=== PATIENT | female | born 1965 | race Caucasian/White ===

== ENCOUNTER → 2016-07-22 | Outpatient (REF) | payer BC | LOC: M LAB REF 12:40 | PROVIDERS: ATTEND Internal Medicine Medical Oncology | DX: C92.40 Acute promyelocytic leukemia, not having achieved remission (principal) ==

== ENCOUNTER → 2016-10-25 | Outpatient (REF) | payer BC | LOC: M LAB REF 12:55 | PROVIDERS: ATTEND Internal Medicine | DX: N76.0 Acute vaginitis (principal) ==

== ENCOUNTER → 2016-11-03 | Outpatient (REF) | payer BC | LOC: M LAB REF 11:22 | PROVIDERS: ATTEND Internal Medicine | DX: R31.9 Hematuria, unspecified (principal) ==

== ENCOUNTER → 2016-11-11 | Outpatient (REF) | payer BC | LOC: M LAB REF 16:29 | PROVIDERS: ATTEND Internal Medicine | DX: R31.9 Hematuria, unspecified (principal) ==

== ENCOUNTER → 2016-12-26 | Outpatient (CLI) | payer BC ==
[~2016-12-26] MED LIST: AMLO5TAB2 PO; LEVO175T2 PO; MULT1CHW39 PO
--- NOTE | 2016-12-26 11:36 | REP ---
Chest two views HISTORY: Port catheter check Comparison: None The lungs are clear. The heart is normal in size. The pulmonary vasculature is normal in appearance. The bony structure is intact. An [id number] catheter is present in the superior vena cava. IMPRESSION: No acute disease. Signed by Roderick Ryan MD 12/26/2016 11:28 A
== END ==
LOC: M SMT 11:06
PROVIDERS: ATTEND Thoracic Surgery (Cardiothoracic Vascular Surgery)
DX: T80.89XA Other complications following infusion, transfusion and therapeutic injection, initial encounter (principal); X58.XXXA Exposure to other specified factors, initial encounter; Y93.9 Activity, unspecified; Y92.9 Unspecified place or not applicable; Y99.8 Other external cause status

== ENCOUNTER → 2016-12-30 | Outpatient (CLI) | payer BC ==
[2016-12-30 17:42] LABS: INR 0.92
== END ==
LOC: M SMT 13:59
PROVIDERS: ATTEND Thoracic Surgery (Cardiothoracic Vascular Surgery)
DX: Z01.818 Encounter for other preprocedural examination (principal)

== ENCOUNTER 2017-01-02 10:31 | Day surgery (SDC) | payer BC ==
[~2017-01-02] VITALS: Ht 162.6 cm; Wt 113.4 kg
[2017-01-02] MEDS ORDERED: LR 1,000 ML IV ONE (10:45)
[2017-01-02] MEDS ORDERED: MUPIROCIN 2% OINT 22 GM TUBE TOP ONE (11:45)
[2017-01-02] MEDS ORDERED: fentaNYL 100 MCG/2 ML INJECTION (J3010) As Ordered ONE (14:56)
[2017-01-02] MEDS ORDERED: LIDOCAINE 2% INJ 100 MG/5 ML SDV (FOR ANES.) As Ordered ONE ×2 (14:56→15:04)
[2017-01-02] MEDS ORDERED: PROPOFOL 200 MG/20 ML VIAL As Ordered ONE ×4 (14:56→15:41)
[2017-01-02] MEDS ORDERED: MIDAZOLAM INJ 2 MG/2 ML VIAL (J2250) As Ordered ONE (14:57)
[2017-01-02] MEDS ORDERED: dexameTHASONE 4 MG/ML 1ML VIAL (J1100) As Ordered ONE (15:04)
[2017-01-02] MEDS ORDERED: ONDANSETRON 4MG/2ML VIAL (J2405) As Ordered ONE (15:04)
[2017-01-02] MEDS ORDERED: BUPIVACAINE LIPOSOME/PF 1.3% 20 ML VIAL (13.3MG/ML)(EXPAREL) As Ordered ONE (15:13)
[2017-01-02 16:25] VITALS: BP 122/64
[2017-01-02] MEDS ORDERED: PERCOCET 5MG/325MG TAB PO PRN (16:45)
[2017-01-02] MEDS ORDERED: METOCLOPRAMIDE INJ 10MG/2ML VIAL (J2765) IV PRN (16:45)
[2017-01-02] MEDS ORDERED: ONDANSETRON 4MG/2ML VIAL (J2405) IV PRN (16:45)
[2017-01-02] MEDS ORDERED: LR 1,000 ML IV SCH (16:45)
--- NOTE | 2017-01-02 18:22 | RO ---
DATE OF PROCEDURE: 01/02/2017 PREPROCEDURE DIAGNOSIS: Retained Infusaport, status-post chemotherapy for leukemia. POSTPROCEDURE DIAGNOSIS: Retained Infusaport, status-post chemotherapy for leukemia. PROCEDURE: Removal of Infusaport with fluoroscopic control. SURGEON: Dr. Crow Mena COAT MAKER: ANESTHESIA: DESCRIPTION OF PROCEDURE: After satisfactory monitored anesthetic care (MAC) anesthesia, patient prepped and draped in the usual sterile fashion. The port site was infiltrated with Exparel. Incision was made and the port was found and the glistening capsule. The glistening capsule was dissected free. The stem of the port was identified as was the capsule going in to it. Under fluoroscopic control the catheter was removed without difficulty. The remainder of the port was then removed from the glistening capsule and the glistening capsule, electrocautery. After achieving adequate hemostasis the wound was closed with running #3-0 Vicryl suture with a subcutaneous stitch and running #4-0 Monocryl suture subcuticular for the skin. The patient tolerated the procedure well and left the operating room in satisfactory condition.
== END 2017-01-02 16:40 | disposition home or self-care (01) ==
LOC: M SDC 10:31
PROVIDERS: ATTEND Thoracic Surgery (Cardiothoracic Vascular Surgery)
DX: Z45.2 Encounter for adjustment and management of vascular access device (principal); C91.91 Lymphoid leukemia, unspecified, in remission; C73 Malignant neoplasm of thyroid gland; Z79.899 Other long term (current) drug therapy; Z92.21 Personal history of antineoplastic chemotherapy; Z92.3 Personal history of irradiation
CPT/HCPCS: 36590; 76000; J0690; J2250; J3010

== ENCOUNTER → 2017-01-19 | Outpatient (CLI) | payer BC ==
--- NOTE | 2017-01-20 14:27 | REP ---
Clinical: Chest pain. Recent transfusion/infusion . Comparison: 12/26/2016 . Technique: PA and lateral. Findings: The mediastinum and cardiac silhouette are normal. The lung klein are clear and without acute consolidation, effusion, or pneumothorax. The skeletal structures are intact and normal. Impression: 1. No acute cardiopulmonary process. Signed by Obi Reaves MD 01/19/2017 08:33 P
== END ==
LOC: M SMT 15:15
PROVIDERS: ATTEND Thoracic Surgery (Cardiothoracic Vascular Surgery)
DX: T80.89XA Other complications following infusion, transfusion and therapeutic injection, initial encounter (principal); X58.XXXA Exposure to other specified factors, initial encounter; Y93.9 Activity, unspecified; Y92.9 Unspecified place or not applicable; Y99.8 Other external cause status

== ENCOUNTER → 2017-05-04 | Outpatient (REF) | payer BC ==
[2017-05-04 19:55] LABS: INR 0.93
== END ==
LOC: M LAB REF 17:37
PROVIDERS: ATTEND Internal Medicine Medical Oncology
DX: C73 Malignant neoplasm of thyroid gland (principal)

== ENCOUNTER → 2017-05-19 | Outpatient (CLI) | payer BC ==
[~2017-05-19] MED LIST changes: -AMLO5TAB2 PO; +ISOVUE-370 76% 100ML VIAL (Q9967) As Ordered; -LEVO175T2 PO; -MULT1CHW39 PO
== END ==
LOC: M RAD 11:11
DX: C92.41 Acute promyelocytic leukemia, in remission (principal)
CPT/HCPCS: Q9967

== ENCOUNTER → 2017-08-17 | Outpatient (REF) | payer BC ==
[2017-08-19 15:19] LABS: ANTI THROMBIN 3 FUNCT ACTIVITY 119 % (75-135); PROTEIN C FUNCTIONAL ACTIVITY 128 % (73-180); PROTEIN S FUNCTIONAL ACTIVITY 133 % (63-140)
[2017-08-21 14:11] LABS: PHOSPHOLIPIDS LEVEL 244 mg/dL (150-250)
[2017-08-22 10:25] LABS: DRVV SCREEN 46.9 SEC
[2017-08-22 10:26] LABS: PTT LUPUS TYPE ANTICOAG SCREEN 1.2 (0-1.2)
[2017-08-22 10:34] LABS: DRVV CONFIRM 38.7 SEC
== END ==
LOC: M LAB REF 16:48
DX: I82.401 Acute embolism and thrombosis of unspecified deep veins of right lower extremity (principal)
CPT/HCPCS: 84311

== ENCOUNTER → 2018-01-02 | Outpatient (REF) | payer BC | LOC: M LAB REF 10:06 | DX: C92.41 Acute promyelocytic leukemia, in remission (principal) | CPT/HCPCS: 88300 ==

== ENCOUNTER → 2018-03-13 | Outpatient (REF) | payer BC ==
[2018-03-13 13:26] LABS: D-DIMER QUANT 272.2 ng/ml (<500)
== END ==
LOC: M LAB REF 12:50
DX: M79.661 Pain in right lower leg (principal)
CPT/HCPCS: 86140

== ENCOUNTER → 2018-04-20 | Outpatient (REF) | payer BC ==
[2018-04-20 14:07] LABS: C REACTIVE PROTEIN QUANTITATIV 1.86 MG/DL (0.00-0.30)
== END ==
LOC: M LAB REF 13:12
DX: M79.10 Myalgia, unspecified site (principal); R79.82 Elevated C-reactive protein (CRP)
CPT/HCPCS: 86140

== ENCOUNTER 2018-05-02 22:46 | Emergency (ER) | payer BC | END 2018-05-03 00:43 | disposition home or self-care (01) | LOC: M ED 05-03 00:43 | DX: M79.652 Pain in left thigh (principal); Z86.718 Personal history of other venous thrombosis and embolism; E03.9 Hypothyroidism, unspecified; Z79.890 Hormone replacement therapy; Z79.01 Long term (current) use of anticoagulants | CPT/HCPCS: 93971 ==

== ENCOUNTER → 2018-10-16 | Outpatient (REF) ==
[~2018-10-16] MED LIST changes: +AMLO5TAB6 PO; -ISOVUE-370 76% 100ML VIAL (Q9967) As Ordered; +LEVO175T2 PO; +MULT200T7 PO; +RAMI1CAP22; +XARE10TA PO; +XARE20TA
[2018-10-17 10:15] LABS: RUBELLA IgG QUALITATIVE IMMUNE (IMMUNE)
== END ==
LOC: M LAB 10:33
PROVIDERS: ATTEND Nurse Practitioner Adult Health
DX: Z02.89 Encounter for other administrative examinations (principal)

== ENCOUNTER → 2019-01-29 | Outpatient (REF) | payer BC ==
[~2019-01-29] MED LIST changes: +MULTCAP PO
== END ==
LOC: M LAB REF 16:44
PROVIDERS: ATTEND Internal Medicine
DX: N39.0 Urinary tract infection, site not specified (principal)

== ENCOUNTER → 2019-02-04 | Outpatient (REF) | payer BC ==
[2019-02-04 19:49] LABS: PERCENT SATURATION 13.7 % (13.2-45.0)
[2019-02-04 20:03] LABS: APPEARANCE, URINE CLEAR (CLEAR); BACTERIA, URINE AUTO 3+ (NEGATIVE); BILIRUBIN, URINE AUTO NEGATIVE (NEGATIVE); BLOOD, URINE BLOOD 1+ (NEGATIVE); COLOR, URINE STRAW (YELLOW); GLUCOSE, URINE (UA) AUTO NEGATIVE (NEGATIVE); KETONE, URINE AUTO NEGATIVE (NEGATIVE); LEUKOCYTE ESTERASE, URINE AUTO TRACE (NEGATIVE); MUCUS, URINE SMALL (NEGATIVE); NITRITE, URINE AUTO NEGATIVE (NEGATIVE); PROTEIN, URINE AUTO NEGATIVE (NEGATIVE); RBC, URINE AUTO 5 /HPF (0-3); SPECIFIC GRAVITY URINE AUTO 1.005 (1.002-1.035); SQUAMOUS EPITHELIAL CELL UR AU 1 /HPF (0-6); UROBILINOGEN, URINE AUTO 0.2 mg/dL (0.0-2.0); WBC, URINE AUTO 1 /HPF (0-3)
== END ==
LOC: M LAB REF 19:06
PROVIDERS: ATTEND Internal Medicine
DX: R31.9 Hematuria, unspecified (principal); D50.9 Iron deficiency anemia, unspecified

== ENCOUNTER → 2019-02-18 | Outpatient (REF) | payer BC ==
[2019-02-18 18:21] LABS: APPEARANCE, URINE CLEAR (CLEAR); BACTERIA, URINE AUTO 2+ (NEGATIVE); BILIRUBIN, URINE AUTO NEGATIVE (NEGATIVE); BLOOD, URINE BLOOD 1+ (NEGATIVE); COLOR, URINE STRAW (YELLOW); GLUCOSE, URINE (UA) AUTO NEGATIVE (NEGATIVE); KETONE, URINE AUTO NEGATIVE (NEGATIVE); LEUKOCYTE ESTERASE, URINE AUTO 3+ (NEGATIVE); NITRITE, URINE AUTO NEGATIVE (NEGATIVE); PROTEIN, URINE AUTO NEGATIVE (NEGATIVE); RBC, URINE AUTO 2 /HPF (0-3); SPECIFIC GRAVITY URINE AUTO 1.006 (1.002-1.035); SQUAMOUS EPITHELIAL CELL UR AU 1 /HPF (0-6); UROBILINOGEN, URINE AUTO 0.2 mg/dL (0.0-2.0); WBC, URINE AUTO 13 /HPF (0-3)
== END ==
LOC: M LAB REF 16:22
PROVIDERS: ATTEND Internal Medicine
DX: R31.9 Hematuria, unspecified (principal)

== ENCOUNTER → 2019-02-22 | Outpatient (REF) | payer BC ==
[2019-02-22 13:11] LABS: APPEARANCE, URINE HAZY (CLEAR); BACTERIA, URINE AUTO 1+ (NEGATIVE); BILIRUBIN, URINE AUTO NEGATIVE (NEGATIVE); BLOOD, URINE BLOOD 2+ (NEGATIVE); COLOR, URINE YELLOW (YELLOW); GLUCOSE, URINE (UA) AUTO NEGATIVE (NEGATIVE); KETONE, URINE AUTO NEGATIVE (NEGATIVE); LEUKOCYTE ESTERASE, URINE AUTO TRACE (NEGATIVE); MUCUS, URINE SMALL (NEGATIVE); NITRITE, URINE AUTO NEGATIVE (NEGATIVE); PROTEIN, URINE AUTO NEGATIVE (NEGATIVE); RBC, URINE AUTO 5 /HPF (0-3); SPECIFIC GRAVITY URINE AUTO 1.012 (1.002-1.035); SQUAMOUS EPITHELIAL CELL UR AU 2 /HPF (0-6); UROBILINOGEN, URINE AUTO 0.2 mg/dL (0.0-2.0); WBC, URINE AUTO 3 /HPF (0-3)
== END ==
LOC: M LAB REF 12:44
PROVIDERS: ATTEND Internal Medicine
DX: R06.00 Dyspnea, unspecified (principal)

== ENCOUNTER 2019-06-24 11:44 | Day surgery (SDC) | payer BC ==
[~2019-06-24] VITALS: Ht 162.6 cm; Wt 115.2 kg
[~2019-06-24 11:44] MED LIST changes: +IBUP-1114 PO; +NS 1,000 ML IV ONE
[2019-06-24] MEDS ORDERED: propofoL 200 MG/20 ML VIAL As Ordered ONE ×2 (12:47→12:57)
--- NOTE | 2019-06-24 13:12 | ROOR ---
Patient Name: Dora Sanches Procedure Date: 06/24/2019 12:45 PM Date of : 1965 Age: 53 Room: [facility] [place] Gender: Female Note Status: Finalized Procedure: Total Colonoscopy to Cecum Indications: Colon cancer screening in patient at increased risk: Colorectal cancer in father, Colon cancer screening in patient at increased risk: Colorectal cancer in brother Providers: Gabriel Monae MD Referring MD: Tish HERNANDEZ MD Requesting Provider: Medicines: Monitored Anesthesia Care Complications: No immediate complications. Procedure: Pre-Anesthesia Assessment: - The heart rate, respiratory rate, oxygen saturations, blood pressure, adequacy of pulmonary ventilation, and response to care were monitored throughout the procedure. The Colonoscope was introduced through the anus and advanced to the cecum, identified by appendiceal orifice and ileocecal valve. The colonoscopy was performed without difficulty. The patient tolerated the procedure well. The quality of the bowel preparation was excellent. Findings: The perianal and digital rectal examinations were normal. Non-bleeding internal hemorrhoids were found during retroflexion. The hemorrhoids were small and Grade I (internal hemorrhoids that do not prolapse). No other significant abnormalities were identified in a careful examination of the remainder of the colon. The exam was otherwise without abnormality on direct and retroflexion views. Impression: - Non-bleeding internal hemorrhoids. - The examination was otherwise normal on direct and retroflexion views. - No specimens collected. - The exam was otherwise normal to the cecum. Recommendation: - Patient has a contact number available for emergencies. The signs and symptoms of potential delayed complications were discussed with the patient. Return to normal activities tomorrow. Written discharge instructions were provided to the patient. - High fiber diet. - Discharge patient to home. - Continue present medications. - Repeat colonoscopy in 5 years for screening purposes. - Return to referring physician. - The findings and recommendations were discussed with the patient's family. Gabriel Monae MD Gabriel Monae MD 06/24/2019 1:12:05 PM Electronically signed by Gabriel Monae MD Number of Addenda: 0 Note Initiated On: 06/24/2019 12:45 PM Estimated Blood Loss: Estimated blood loss: none.
[2019-06-24 13:25] VITALS: BP 159/96
== END 2019-06-24 13:37 | disposition home or self-care (01) ==
LOC: M OPP 11:44
PROVIDERS: ATTEND Internal Medicine Gastroenterology
DX: Z12.11 Encounter for screening for malignant neoplasm of colon (principal); Z80.0 Family history of malignant neoplasm of digestive organs; K64.0 First degree hemorrhoids; Z79.899 Other long term (current) drug therapy

== ENCOUNTER 2019-10-14 04:34 | Emergency (ER) | payer BC ==
[~2019-10-14] VITALS: Ht 162.6 cm; Wt 112.3 kg
[~2019-10-14 04:34] MED LIST changes: -NS 1,000 ML IV ONE
[2019-10-14 05:24] LABS: BASO % 0.2 % (0.0-1.0); EOS % 0.2 % (0.0-3.0); HEMATOCRIT 35.1 % (36.0-47.0); HEMOGLOBIN 11.7 g/dl (12.0-15.5); LYMPH # 1.6 10^3/uL (1.5-5.0); LYMPH % 16.8 % (24.0-44.0); MEAN CORPUSCULAR HEMOGLOBIN 27.7 pg (27.0-33.0); MEAN CORPUSCULAR HGB CONC 33.3 g/dl (32.0-36.5); MEAN CORPUSCULAR VOLUME 83.2 fl (80.0-96.0); MONO # 0.8 10^3/uL (0.0-0.8); MONO % 8.2 % (0.0-5.0); NEUTROPHILS # 6.9 10^3/uL (1.5-8.5); NEUTROPHILS % 74.3 % (36.0-66.0); PLATELET COUNT, AUTOMATED 266 10^3/uL (150-450); RED BLOOD COUNT 4.22 10^6/uL (4.00-5.40); WHITE BLOOD COUNT 9.3 10^3/uL (4.0-10.0)
[2019-10-14 05:47] LABS: ALBUMIN 3.2 GM/DL (3.2-5.2); ALT/SGPT 16 U/L (12-78); BILIRUBIN,DIRECT 0.1 MG/DL (0.0-0.2); BILIRUBIN,TOTAL 0.5 MG/DL (0.2-1.0); BLOOD UREA NITROGEN 10 MG/DL (7-18); CALCIUM LEVEL 8.9 MG/DL (8.5-10.1); CARBON DIOXIDE LEVEL 26 MEQ/L (21-32); CHLORIDE LEVEL 106 MEQ/L (98-107); CREATININE FOR GFR 0.76 MG/DL (0.55-1.30); GLOMERULAR FILTRATION RATE > 60.0 (>51); GLUCOSE, FASTING 115 MG/DL (70-100); LIPASE 24 U/L (73-393); POTASSIUM SERUM 3.8 MEQ/L (3.5-5.1); SODIUM LEVEL 141 MEQ/L (136-145); TOTAL PROTEIN 6.5 GM/DL (6.4-8.2)
--- NOTE | 2019-10-14 06:17 | REPVR ---
PROCEDURE INFORMATION: Exam: CT Abdomen And Pelvis Without Contrast Exam date and time: 10/14/2019 5:49 AM Age: 54 years old Clinical indication: Abdominal pain; Additional info: Llq pain/microscopic hematuria TECHNIQUE: Imaging protocol: Computed tomography of the abdomen and pelvis without contrast. Radiation optimization: All CT scans at this facility use at least one of these dose optimization techniques: automated exposure control; mA and/or kV adjustment per patient size (includes targeted exams where dose is matched to clinical indication); or iterative reconstruction. COMPARISON: CT Pelvis without contrast 02/02/2015 5:12 AM FINDINGS: Lungs: The visualized portions of the lung bases are normal. Liver: The unenhanced liver appears unremarkable. Gallbladder and bile ducts: The gallbladder is normal with no stones or biliary ductal dilation. Pancreas: There is diffuse, benign fatty infiltration of the pancreas. Spleen: The unenhanced spleen appears unremarkable. Adrenals: The adrenal glands are normal. Kidneys and ureters: There is left-sided perinephric stranding. There is mild left kidney hydronephrosis. There is mild dilation of the left ureter throughout its length to the bladder and there is left periureteral stranding. No stones are identified. The right kidney appears unremarkable.The right ureter appears normal with no stones or hydronephrosis. Stomach and bowel: The small bowel appears unremarkable. Incidental note is made of a mobile cecum with the cecum located to the left of midline in the mid to upper abdomen. There is no dilation or thickening of the colon. Appendix: The appendix is not specifically identified. Intraperitoneal space: There is no evidence of free intraperitoneal fluid. There is no free intraperitoneal air. Retroperitoneal space: There is a small amount of fluid tracking down the left peritoneum into the pelvis. Vasculature: No aortic aneurysm. Lymph nodes: No lymphadenopathy is seen. Bladder: The bladder is unremarkable. No stones identified. Reproductive: The uterus is enlarged and globular in shape, consistent with a fibroid uterus The uterus measures 13.5 x 8.3 x 9.5 cm. Bones/joints: There is facet arthropathy in the lumbar spine. Subchondral sclerosis, subchondral cysts, and small osteophytes are seen in the bilateral hip joints, most consistent with osteoarthritis, with progression compared to the prior CT scan. Soft tissues: The soft tissues appear unremarkable. IMPRESSION: 1. Prominent left perinephric and periureteral stranding, mild left hydronephrosis and hydroureter to the bladder but no stones identified. The findings may be due to a recently passed stone or to pyelonephritis and urinary tract infection. 2. Unremarkable appearance of the bladder. 3. Enlarged, globular uterus consistent with a fibroid uterus. Electronically signed by: Rosa Isela Ortega On 10/14/2019 06:16:41 AM
[2019-10-14] MEDS ORDERED: KETOROLAC 30 MG/ML 1ML VIAL IV ONE (06:30)
[2019-10-14] MEDS ORDERED: ONDA4TAB6 PO (06:51)
[2019-10-14] MEDS ORDERED: CEFD1CAP8 PO (06:51)
[2019-10-14] MEDS ORDERED: KETO10TAB PO (06:51)
[2019-10-14 07:06] VITALS: BP 155/90
== END 2019-10-14 07:41 | disposition home or self-care (01) ==
LOC: M ED 04:34
DX: N20.1 Calculus of ureter (principal); N39.0 Urinary tract infection, site not specified; E03.9 Hypothyroidism, unspecified; Z86.711 Personal history of pulmonary embolism; C95.90 Leukemia, unspecified not having achieved remission; Z79.899 Other long term (current) drug therapy

== ENCOUNTER → 2020-05-29 | Outpatient (REF) | payer BC ==
[~2020-05-29] MED LIST changes: +AMLO1TAB24 PO; -AMLO5TAB6 PO; +CEFD1CAP8 PO; +KETO10TAB PO; +ONDA4TAB6 PO
[2020-05-29 14:10] LABS: BACTERIA, URINE AUTO 1+ (NEGATIVE); MUCUS, URINE SMALL (NEGATIVE); RBC, URINE AUTO 2 /HPF (0-3); SQUAMOUS EPITHELIAL CELL UR AU 3 /HPF (0-6); WBC, URINE AUTO 4 /HPF (0-3)
== END ==
LOC: M LAB REF 12:33
PROVIDERS: ATTEND Internal Medicine
DX: R31.9 Hematuria, unspecified (principal)

== ENCOUNTER → 2020-09-08 | Outpatient (REF) | payer BC ==
[2020-09-10 11:15] LABS: HEPATITIS A ANTIBODY IGM NEGATIVE (NEGATIVE); HEPATITIS B CORE ANTIBODY IGM NEGATIVE (NEGATIVE); HEPATITIS B SURFACE ANTIGEN NEGATIVE (NEGATIVE)
[2020-09-10 16:50] LABS: CHLAMYDIA DNA AMPLIFICATION NEGATIVE (NEGATIVE); GC DNA AMPLIFICATION NEGATIVE (NEGATIVE)
[2020-09-11 09:11] LABS: HIV 1&2 SCREEN CENTAUR NEGATIVE (NEGATIVE)
== END ==
LOC: M LAB REF 11:10
PROVIDERS: ATTEND Internal Medicine
DX: N76.0 Acute vaginitis (principal); N77.1 Vaginitis, vulvitis and vulvovaginitis in diseases classified elsewhere; D36.7 Benign neoplasm of other specified sites

== ENCOUNTER → 2020-09-30 | Outpatient (REF) | payer BC ==
[2020-09-30 14:10] LABS: HIV 1&2 SCREEN CENTAUR NEGATIVE (NEGATIVE)
== END ==
LOC: M LAB REF 12:08
PROVIDERS: ATTEND Internal Medicine
DX: Z20.2 Contact with and (suspected) exposure to infections with a predominantly sexual mode of transmission (principal); A60.04 Herpesviral vulvovaginitis

== ENCOUNTER → 2020-12-03 | Outpatient (CLI) | payer BC ==
[2020-12-03 17:19] LABS: BASO % 0.4 % (0.0-1.0); EOS % 0.4 % (0.0-3.0); HEMATOCRIT 36.8 % (36.0-47.0); HEMOGLOBIN 12.4 g/dl (12.0-15.5); LYMPH # 1.6 10^3/uL (1.5-5.0); LYMPH % 24.1 % (24.0-44.0); MEAN CORPUSCULAR HEMOGLOBIN 29.5 pg (27.0-33.0); MEAN CORPUSCULAR HGB CONC 33.7 g/dl (32.0-36.5); MEAN CORPUSCULAR VOLUME 87.4 fl (80.0-96.0); MONO # 0.5 10^3/uL (0.0-0.8); MONO % 7.8 % (2.0-8.0); NEUTROPHILS # 4.5 10^3/uL (1.5-8.5); PLATELET COUNT, AUTOMATED 256 10^3/uL (150-450); RED BLOOD COUNT 4.21 10^6/uL (4.00-5.40); WHITE BLOOD COUNT 6.8 10^3/uL (4.0-10.0)
[2020-12-03 17:47] LABS: ALBUMIN 3.5 GM/DL (3.2-5.2); ALT/SGPT 18 U/L (12-78); BILIRUBIN,TOTAL 0.4 MG/DL (0.2-1.0); BLOOD UREA NITROGEN 14 MG/DL (7-18); CALCIUM LEVEL 9.2 MG/DL (8.5-10.1); CARBON DIOXIDE LEVEL 28 MEQ/L (21-32); CHLORIDE LEVEL 108 MEQ/L (98-107); CREATININE FOR GFR 0.83 MG/DL (0.55-1.30); GLOMERULAR FILTRATION RATE > 60.0 (>51); GLUCOSE, FASTING 107 MG/DL (70-100); SODIUM LEVEL 143 MEQ/L (136-145); TOTAL PROTEIN 6.6 GM/DL (6.4-8.2)
== END ==
LOC: M PLALAB 14:58
PROVIDERS: ATTEND Nurse Practitioner Family
DX: C92.41 Acute promyelocytic leukemia, in remission (principal)

== ENCOUNTER → 2020-12-24 | Outpatient (REF) | payer BC ==
[2020-12-24 13:24] LABS: HIV 1&2 SCREEN CENTAUR NEGATIVE (NEGATIVE)
== END ==
LOC: M LAB REF 11:44
PROVIDERS: ATTEND Internal Medicine
DX: Z20.2 Contact with and (suspected) exposure to infections with a predominantly sexual mode of transmission (principal)

== ENCOUNTER → 2021-04-05 | Outpatient (REF) | payer BC ==
[2021-04-05 19:50] LABS: HIV 1&2 SCREEN CENTAUR NEGATIVE (NEGATIVE)
== END ==
LOC: M LAB REF 16:23
PROVIDERS: ATTEND Internal Medicine
DX: Z20.2 Contact with and (suspected) exposure to infections with a predominantly sexual mode of transmission (principal)

== ENCOUNTER → 2021-04-07 | Outpatient (REF) | payer BC ==
[2021-04-07 12:46] LABS: BACTERIA, URINE AUTO NEGATIVE (NEGATIVE); RBC, URINE AUTO 6 /HPF (0-3); SQUAMOUS EPITHELIAL CELL UR AU 2 /HPF (0-6); WBC, URINE AUTO 1 /HPF (0-3)
== END ==
LOC: M LAB REF 12:23
PROVIDERS: ATTEND Internal Medicine
DX: R31.9 Hematuria, unspecified (principal)

== ENCOUNTER → 2021-04-21 | Outpatient (REF) | payer BC ==
[~2021-04-21] MED LIST changes: -CEFD1CAP8 PO; +CEFD300C41 PO
[2021-04-21 12:14] LABS: APPEARANCE, URINE CLEAR (CLEAR); BACTERIA, URINE AUTO NEGATIVE (NEGATIVE); BILIRUBIN, URINE AUTO NEGATIVE (NEGATIVE); BLOOD, URINE BLOOD 1+ (NEGATIVE); COLOR, URINE YELLOW (YELLOW); GLUCOSE, URINE (UA) AUTO NEGATIVE (NEGATIVE); KETONE, URINE AUTO NEGATIVE (NEGATIVE); LEUKOCYTE ESTERASE, URINE AUTO NEGATIVE (NEGATIVE); NITRITE, URINE AUTO NEGATIVE (NEGATIVE); PROTEIN, URINE AUTO NEGATIVE (NEGATIVE); RBC, URINE AUTO 2 /HPF (0-3); SQUAMOUS EPITHELIAL CELL UR AU 0 /HPF (0-6); UROBILINOGEN, URINE AUTO 0.2 mg/dL (0.0-2.0); WBC, URINE AUTO 1 /HPF (0-3)
== END ==
LOC: M LAB REF 11:39
PROVIDERS: ATTEND Internal Medicine
DX: R31.9 Hematuria, unspecified (principal)

== ENCOUNTER → 2021-04-28 | Outpatient (REF) | payer BC ==
[~2021-04-28] MED LIST changes: +CEFD1CAP8 PO; -CEFD300C41 PO
[2021-04-28 12:53] LABS: BACTERIA, URINE AUTO 1+ (NEGATIVE); RBC, URINE AUTO 3 /HPF (0-3); SQUAMOUS EPITHELIAL CELL UR AU 3 /HPF (0-6); WBC, URINE AUTO 2 /HPF (0-3)
== END ==
LOC: M LAB REF 12:22
PROVIDERS: ATTEND Internal Medicine
DX: R31.9 Hematuria, unspecified (principal)

== ENCOUNTER → 2021-06-30 | Outpatient (CLI) | payer BC ==
[~2021-06-30] MED LIST changes: -CEFD1CAP8 PO; +CEFD300C41 PO
== END ==
LOC: M RAD 12:33
PROVIDERS: ATTEND Urology
DX: R31.29 Other microscopic hematuria (principal)

== ENCOUNTER 2021-11-21 13:09 | Emergency (ER) | payer BC ==
[~2021-11-21] VITALS: Ht 162.6 cm; Wt 109.9 kg
[2021-11-21] MEDS ORDERED: CHLO125TA PO (13:20)
[2021-11-21] MEDS ORDERED: LEVO125T4 PO (13:20)
[2021-11-21] MEDS ORDERED: RAMI1CAP22 PO (13:20)
[2021-11-21 13:53] LABS: BASO % 0.4 % (0.0-1.0); EOS # 0.1 10^3/uL (0.0-0.5); EOS % 0.8 % (0.0-3.0); HEMATOCRIT 38.3 % (36.0-47.0); LYMPH # 2.3 10^3/uL (1.5-5.0); LYMPH % 27.3 % (24.0-44.0); MEAN CORPUSCULAR HEMOGLOBIN 29.9 pg (27.0-33.0); MEAN CORPUSCULAR HGB CONC 33.9 g/dl (32.0-36.5); MONO # 0.5 10^3/uL (0.0-0.8); MONO % 6.4 % (2.0-8.0); NEUTROPHILS # 5.5 10^3/uL (1.5-8.5); NEUTROPHILS % 64.7 % (36.0-66.0); PLATELET COUNT, AUTOMATED 286 10^3/uL (150-450); RED BLOOD COUNT 4.35 10^6/uL (4.00-5.40); WHITE BLOOD COUNT 8.4 10^3/uL (4.0-10.0)
[2021-11-21] MEDS ORDERED: METOPROLOL TART 50 MG TAB PO ONE (14:15)
[2021-11-21 14:25] LABS: ALBUMIN 3.3 GM/DL (3.2-5.2); ALT/SGPT 14 U/L (12-78); BILIRUBIN,DIRECT < 0.1 MG/DL (0.0-0.2); BILIRUBIN,TOTAL 0.4 MG/DL (0.2-1.0); FREE T4 1.36 NG/DL (0.76-1.46); MAGNESIUM LEVEL 1.7 MG/DL (1.8-2.4); TOTAL PROTEIN 6.4 GM/DL (6.4-8.2)
[2021-11-21] MEDS: METOPROLOL 5 MG/5 ML VIAL IV SCH ×3 (14:25→14:40)
[2021-11-21] MEDS ORDERED: ISOVUE-370 76% 100ML VIAL As Ordered ONE (14:30)
[2021-11-21] MEDS ORDERED: APIXABAN 5 MG TAB (ELIQUIS) PO ONE (14:50)
[2021-11-21] MEDS ORDERED: LOPR1TAB6 PO (16:29)
[2021-11-21] MEDS ORDERED: ELIQ5TAB PO (16:29)
[2021-11-21 16:31] VITALS: BP 112/78
== END 2021-11-21 17:04 | disposition home or self-care (01) ==
LOC: M ED 13:09
DX: I48.91 Unspecified atrial fibrillation (principal); I44.30 Unspecified atrioventricular block; I10 Essential (primary) hypertension; E03.9 Hypothyroidism, unspecified; Z86.718 Personal history of other venous thrombosis and embolism; Z85.6 Personal history of leukemia
CPT/HCPCS: 71045; 71275; 80047; 80076; 83735; 84439; 84443; 84484; 85025; 93005; 93041; 94760; 99285; Q9967

== ENCOUNTER → 2021-12-01 | Outpatient (CLI) | payer BC ==
[~2021-12-01] MED LIST changes: +CHLO125TA PO; +ELIQ5TAB PO; +LEVO125T4 PO; +LOPR1TAB6 PO; +RAMI1CAP22 PO
[2021-12-01 14:36] LABS: BASO % 0.6 % (0.0-1.0); EOS # 0.1 10^3/uL (0.0-0.5); EOS % 0.7 % (0.0-3.0); HEMATOCRIT 37.2 % (36.0-47.0); HEMOGLOBIN 12.5 g/dl (12.0-15.5); LYMPH # 1.8 10^3/uL (1.5-5.0); LYMPH % 25.8 % (24.0-44.0); MEAN CORPUSCULAR HGB CONC 33.6 g/dl (32.0-36.5); MEAN CORPUSCULAR VOLUME 89.2 fl (80.0-96.0); MONO # 0.5 10^3/uL (0.0-0.8); MONO % 6.4 % (2.0-8.0); NEUTROPHILS # 4.7 10^3/uL (1.5-8.5); NEUTROPHILS % 66.4 % (36.0-66.0); PLATELET COUNT, AUTOMATED 259 10^3/uL (150-450); RED BLOOD COUNT 4.17 10^6/uL (4.00-5.40)
[2021-12-01 16:02] LABS: ALBUMIN 3.5 GM/DL (3.2-5.2); ALT/SGPT 17 U/L (12-78); BILIRUBIN,TOTAL 0.6 MG/DL (0.2-1.0); BLOOD UREA NITROGEN 13 MG/DL (7-18); CALCIUM LEVEL 9.2 MG/DL (8.5-10.1); CARBON DIOXIDE LEVEL 29 MEQ/L (21-32); CHLORIDE LEVEL 104 MEQ/L (98-107); CREATININE FOR GFR 0.86 MG/DL (0.55-1.30); GLOMERULAR FILTRATION RATE > 60.0 (>51); GLUCOSE, FASTING 86 MG/DL (70-100); POTASSIUM SERUM 3.9 MEQ/L (3.5-5.1); SODIUM LEVEL 137 MEQ/L (136-145); TOTAL PROTEIN 6.9 GM/DL (6.4-8.2)
== END ==
LOC: M PLALAB 10:13
PROVIDERS: ATTEND Internal Medicine Hematology
DX: C92.41 Acute promyelocytic leukemia, in remission (principal)

== ENCOUNTER 2021-12-21 08:34 | Inpatient (IN) | payer BC ==
[~2021-12-21] VITALS: Ht 162.6 cm; Wt 111.3 kg
[2021-12-21] MEDS ORDERED: METO37.5 PO (08:43)
[2021-12-21] MEDS ORDERED: METOPROLOL TART 25 MG TABLET PO STA (09:14)
[2021-12-21] MEDS: METOPROLOL 5 MG/5 ML VIAL IV SCH ×3 (09:15→16:53)
[2021-12-21] MEDS ORDERED: APIXABAN 5 MG TAB (ELIQUIS) PO ONE (09:15)
[2021-12-21 09:49] LABS: BASO % 0.3 % (0.0-1.0); EOS % 0.5 % (0.0-3.0); HEMATOCRIT 36.9 % (36.0-47.0); HEMOGLOBIN 12.7 g/dl (12.0-15.5); LYMPH # 1.7 10^3/uL (1.5-5.0); LYMPH % 26.7 % (24.0-44.0); MEAN CORPUSCULAR HGB CONC 34.4 g/dl (32.0-36.5); MONO # 0.5 10^3/uL (0.0-0.8); MONO % 7.4 % (2.0-8.0); NEUTROPHILS # 4.1 10^3/uL (1.5-8.5); NEUTROPHILS % 64.6 % (36.0-66.0); PLATELET COUNT, AUTOMATED 247 10^3/uL (150-450); RED BLOOD COUNT 4.24 10^6/uL (4.00-5.40); WHITE BLOOD COUNT 6.3 10^3/uL (4.0-10.0)
[2021-12-21 09:59] LABS: INR 1.08; PROTHROMBIN TIME 14.4 SECONDS (12.7-14.5)
[2021-12-21] MEDS ORDERED: NS 500 ML IV ONE ×2 (10:15→11:10)
[2021-12-21 10:44] LABS: ALBUMIN 3.2 GM/DL (3.2-5.2); ALT/SGPT 19 U/L (12-78); BILIRUBIN,TOTAL 0.4 MG/DL (0.2-1.0); BLOOD UREA NITROGEN 19 MG/DL (7-18); CALCIUM LEVEL 8.9 MG/DL (8.5-10.1); CARBON DIOXIDE LEVEL 25 MEQ/L (21-32); CHLORIDE LEVEL 107 MEQ/L (98-107); CREATININE FOR GFR 0.76 MG/DL (0.55-1.30); FREE THYROXINE INDEX 5.6 % (1.3-4.8); GLOMERULAR FILTRATION RATE > 60.0 (>51); GLUCOSE, FASTING 98 MG/DL (70-100); POTASSIUM SERUM 3.4 MEQ/L (3.5-5.1); SODIUM LEVEL 141 MEQ/L (136-145); T UPTAKE 39 % (30-39); THYROID STIMULATING HORMONE 0.257 uIU/ML (0.358-3.740); THYROXINE (T4) 14.3 UG/DL (4.5-12.0); TOTAL PROTEIN 6.5 GM/DL (6.4-8.2)
[2021-12-21] MEDS ORDERED: AMIODARONE HCL 150 MG in IV 1 EA IV SCH ×2 (12:15→13:25)
[2021-12-21 15:54] LABS: RSV AMPLIFICATION NEGATIVE (NEGATIVE)
[2021-12-21] MEDS ORDERED: DIGOXIN INJ 0.5 MG/2 ML AMP (J1160) IV ONE (16:15)
[2021-12-21] MEDS ORDERED: POTASSIUM CHLORIDE 10MEQ SR TABLET PO ONE (16:15)
[2021-12-21] MEDS ORDERED: LEVO150T7 PO (16:44)
[2021-12-21] MEDS ORDERED: THERTAB52 PO (16:44)
[2021-12-21] MEDS ORDERED: METO50TA7 PO (16:44)
[2021-12-21] MEDS ORDERED: HOME MED LIST COMPLETE! XX SCH (16:50)
[2021-12-21 17:55] LABS: MAGNESIUM LEVEL 1.9 MG/DL (1.8-2.4)
[2021-12-21 18:59] VITALS: BP 137/99
[2021-12-21 20:00] VITALS: BP 134/77
[2021-12-21] MEDS: APIXABAN 5 MG TAB (ELIQUIS) PO SCH (20:44)
[2021-12-21] MEDS: METOPROLOL TART 12.5 MG PER 1/2 TAB PO SCH (20:45)
[2021-12-22] VITALS (14 sets, daily range): BP systolic 109–156; BP diastolic 67–91
[2021-12-22 06:27] LABS: HEMATOCRIT 36.8 % (36.0-47.0); HEMOGLOBIN 12.7 g/dl (12.0-15.5); MEAN CORPUSCULAR HEMOGLOBIN 30.1 pg (27.0-33.0); MEAN CORPUSCULAR HGB CONC 34.5 g/dl (32.0-36.5); MEAN CORPUSCULAR VOLUME 87.2 fl (80.0-96.0); PLATELET COUNT, AUTOMATED 228 10^3/uL (150-450); RED BLOOD COUNT 4.22 10^6/uL (4.00-5.40); WHITE BLOOD COUNT 6.6 10^3/uL (4.0-10.0)
[2021-12-22 07:01] LABS: BLOOD UREA NITROGEN 14 MG/DL (7-18); CALCIUM LEVEL 8.8 MG/DL (8.5-10.1); CARBON DIOXIDE LEVEL 25 MEQ/L (21-32); CHLORIDE LEVEL 110 MEQ/L (98-107); CREATININE FOR GFR 0.75 MG/DL (0.55-1.30); GLOMERULAR FILTRATION RATE > 60.0 (>51); GLUCOSE, FASTING 91 MG/DL (70-100); SODIUM LEVEL 141 MEQ/L (136-145)
[2021-12-22] MEDS: METOPROLOL TART 12.5 MG PER 1/2 TAB PO SCH ×2 (08:52→20:23)
[2021-12-22] MEDS: APIXABAN 5 MG TAB (ELIQUIS) PO SCH ×2 (08:53→20:23)
[2021-12-22] MEDS ORDERED: METOPROLOL 5 MG/5 ML VIAL IV STA (08:59)
[2021-12-22] MEDS ORDERED: METOPROLOL TART 12.5 MG PER 1/2 TAB PO SCH (13:00)
[2021-12-23 04:00] VITALS: BP 120/77
[2021-12-23 06:32] LABS: HEMATOCRIT 36.9 % (36.0-47.0); HEMOGLOBIN 12.8 g/dl (12.0-15.5); MEAN CORPUSCULAR HEMOGLOBIN 30.2 pg (27.0-33.0); MEAN CORPUSCULAR HGB CONC 34.7 g/dl (32.0-36.5); PLATELET COUNT, AUTOMATED 238 10^3/uL (150-450); RED BLOOD COUNT 4.24 10^6/uL (4.00-5.40); WHITE BLOOD COUNT 7.5 10^3/uL (4.0-10.0)
[2021-12-23 07:02] LABS: BLOOD UREA NITROGEN 15 MG/DL (7-18); CALCIUM LEVEL 9.2 MG/DL (8.5-10.1); CARBON DIOXIDE LEVEL 26 MEQ/L (21-32); CHLORIDE LEVEL 108 MEQ/L (98-107); CREATININE FOR GFR 0.77 MG/DL (0.55-1.30); GLOMERULAR FILTRATION RATE > 60.0 (>51); GLUCOSE, FASTING 96 MG/DL (70-100); POTASSIUM SERUM 3.8 MEQ/L (3.5-5.1); SODIUM LEVEL 139 MEQ/L (136-145)
[2021-12-23 08:00] VITALS: BP 138/87
[2021-12-23 08:37] VITALS: BP 138/87
[2021-12-23] MEDS: METOPROLOL TART 12.5 MG PER 1/2 TAB PO SCH (08:37)
[2021-12-23] MEDS: APIXABAN 5 MG TAB (ELIQUIS) PO SCH (08:37)
[2021-12-23 12:00] VITALS: BP 117/59
[2021-12-23] MEDS ORDERED: POTASSIUM CHLORIDE 10MEQ SR TABLET PO ONE (13:25)
[2021-12-23] MEDS ORDERED: LEVO112T2 PO (13:29)
[2021-12-23] MEDS ORDERED: METO1TAB87 PO (13:29)
== END 2021-12-23 14:58 | disposition home or self-care (01) | DRG 201 ==
LOC: M ED 08:34 → M ED INP 16:08 → ENRESERV 17:54 → M PCU 18:45
PROVIDERS: ADMIT Internal Medicine; ATTEND Internal Medicine
DX: I48.0 Paroxysmal atrial fibrillation (principal); I10 Essential (primary) hypertension; E89.0 Postprocedural hypothyroidism; C94.81 Other specified leukemias, in remission; Z79.01 Long term (current) use of anticoagulants; Z85.850 Personal history of malignant neoplasm of thyroid; Z79.890 Hormone replacement therapy; Z79.899 Other long term (current) drug therapy; Z92.21 Personal history of antineoplastic chemotherapy

== ENCOUNTER → 2022-04-20 | Outpatient (CLI) | payer BC ==
[~2022-04-20] MED LIST changes: +LEVO112T2 PO; +LEVO150T7 PO; +METO1TAB87 PO; +METO37.5 PO; +METO50TA7 PO; +THERTAB52 PO
[2022-04-20 18:35] LABS: BLOOD UREA NITROGEN 19 MG/DL (9-23); CALCIUM LEVEL 9.6 MG/DL (8.5-10.1); CARBON DIOXIDE LEVEL 27 MMOL/L (20-31); CHLORIDE LEVEL 104 MMOL/L (98-107); CREATININE FOR GFR 0.83 MG/DL (0.55-1.30); GLOMERULAR FILTRATION RATE > 60.0 (>51); GLUCOSE, FASTING 92 MG/DL (60-100); POTASSIUM SERUM 4.3 MMOL/L (3.5-5.1); SODIUM LEVEL 139 MMOL/L (136-145)
== END ==
LOC: M WUC 14:54
PROVIDERS: ATTEND Internal Medicine Cardiovascular Disease
DX: I48.0 Paroxysmal atrial fibrillation (principal)

== ENCOUNTER → 2022-11-14 | Outpatient (CLI) | payer BC ==
[2022-11-14 16:02] LABS: FOLLICLE STIMULATING HORMONE 41.6 mIU/ML; LUTEINIZING HORMONE 30.4 mIU/ML
== END ==
LOC: M PLALAB 12:18
PROVIDERS: ATTEND Specialist
DX: N92.6 Irregular menstruation, unspecified (principal)

== ENCOUNTER → 2023-02-23 | Outpatient (REF) | payer BC | LOC: M SFHCWAGY 17:30 | PROVIDERS: ATTEND Specialist | DX: Z12.4 Encounter for screening for malignant neoplasm of cervix (principal) | CPT/HCPCS: 87624; G0123 ==

== ENCOUNTER → 2023-11-01 | Outpatient (REF) | payer BC ==
[~2023-11-01] MED LIST changes: +CEFD1CAP9 PO; -CEFD300C41 PO; +ONDA-282 PO; -ONDA4TAB6 PO; -RAMI1CAP22; -RAMI1CAP22 PO; +RAMI2.5C42; +RAMI2.5C42 PO
[2023-11-01 16:53] LABS: APPEARANCE, URINE HAZY (CLEAR); BACTERIA, URINE AUTO 2+ (NEGATIVE); BILIRUBIN, URINE AUTO NEGATIVE (NEGATIVE); BLOOD, URINE BLOOD 2+ (NEGATIVE); COLOR, URINE YELLOW (YELLOW); GLUCOSE, URINE (UA) AUTO NEGATIVE (NEGATIVE); KETONE, URINE AUTO NEGATIVE (NEGATIVE); LEUKOCYTE ESTERASE, URINE AUTO TRACE (NEGATIVE); MUCUS, URINE SMALL (NEGATIVE); NITRITE, URINE AUTO NEGATIVE (NEGATIVE); PROTEIN, URINE AUTO NEGATIVE (NEGATIVE); RBC, URINE AUTO 1 /HPF (0-3); SPECIFIC GRAVITY URINE AUTO 1.008 (1.002-1.035); SQUAMOUS EPITHELIAL CELL UR AU 5 /HPF (0-6); UROBILINOGEN, URINE AUTO 0.2 mg/dL (0.0-2.0); WBC, URINE AUTO 1 /HPF (0-3)
== END ==
LOC: M LAB REF 16:08
PROVIDERS: ATTEND Internal Medicine
DX: R31.9 Hematuria, unspecified (principal)

== ENCOUNTER → 2023-12-05 | Outpatient (CLI) | payer BC ==
[2023-12-05 12:29] LABS: BASO % 0.3 % (0.0-1.0); EOS # 0.1 10^3/uL (0.0-0.5); EOS % 0.9 % (0.0-3.0); HEMATOCRIT 38.6 % (36.0-47.0); HEMOGLOBIN 12.8 g/dl (12.0-15.5); LYMPH # 1.8 10^3/uL (1.5-5.0); LYMPH % 26.4 % (24.0-44.0); MEAN CORPUSCULAR HGB CONC 33.2 g/dl (32.0-36.5); MEAN CORPUSCULAR VOLUME 87.3 fl (80.0-96.0); MONO # 0.5 10^3/uL (0.0-0.8); MONO % 6.4 % (2.0-8.0); NEUTROPHILS # 4.6 10^3/uL (1.5-8.5); NEUTROPHILS % 65.6 % (36.0-66.0); PLATELET COUNT, AUTOMATED 244 10^3/uL (150-450); RED BLOOD COUNT 4.42 10^6/uL (4.00-5.40)
[2023-12-05 13:01] LABS: ALBUMIN 3.5 G/DL (3.2-5.2); ALKALINE PHOSPHATASE 65 U/L (46-116); ALT/SGPT 18 U/L (7.0-40); AST/SGOT 11 U/L (<34); BILIRUBIN,TOTAL 0.5 MG/DL (0.3-1.2); BLOOD UREA NITROGEN 14 MG/DL (9-23); CALCIUM LEVEL 9.1 MG/DL (8.5-10.1); CARBON DIOXIDE LEVEL 26 MMOL/L (20-31); CHLORIDE LEVEL 108 MMOL/L (98-107); CREATININE FOR GFR 0.91 MG/DL (0.55-1.30); GLOMERULAR FILTRATION RATE > 60.0 (>51); GLUCOSE, FASTING 89 MG/DL (60-100); POTASSIUM SERUM 4.1 MMOL/L (3.5-5.1); SODIUM LEVEL 140 MMOL/L (136-145); TOTAL PROTEIN 6.3 G/DL (5.7-8.2)
== END ==
LOC: M WUC 09:37
PROVIDERS: ATTEND Registered Nurse
DX: R79.1 Abnormal coagulation profile (principal)

== ENCOUNTER → 2024-04-10 | Outpatient (CLI) | payer BC ==
[~2024-04-10] MED LIST changes: -MULT200T7 PO; +MULT200T9 PO
[2024-04-10 17:37] LABS: HEMATOCRIT 38.4 % (36.0-47.0); HEMOGLOBIN 12.7 g/dl (12.0-15.5); MEAN CORPUSCULAR HEMOGLOBIN 29.1 pg (27.0-33.0); MEAN CORPUSCULAR HGB CONC 33.1 g/dl (32.0-36.5); MEAN CORPUSCULAR VOLUME 87.9 fl (80.0-96.0); PLATELET COUNT, AUTOMATED 259 10^3/uL (150-450); RED BLOOD COUNT 4.37 10^6/uL (4.00-5.40); WHITE BLOOD COUNT 8.6 10^3/uL (4.0-10.0)
[2024-04-10 17:47] LABS: ERYTHROCYTE SEDIMENTATION RATE 31 mm/hr (0-30)
[2024-04-10 18:04] LABS: C REACTIVE PROTEIN QUANTITATIV 2.2 MG/DL (<1.0); URIC ACID 5.9 MG/DL (3.1-7.8)
== END ==
LOC: M RAD 16:33
PROVIDERS: ATTEND Internal Medicine Infectious Disease
DX: M25.461 Effusion, right knee (principal); M17.11 Unilateral primary osteoarthritis, right knee; M76.891 Other specified enthesopathies of right lower limb, excluding foot

== ENCOUNTER 2024-06-10 10:59 | Day surgery (SDC) | payer BC ==
[~2024-06-10] VITALS: Ht 162.6 cm; Wt 110.7 kg
[~2024-06-10 10:59] MED LIST changes: +LISI30TA4 PO; +TERB250T91 PO
[2024-06-10] MEDS ORDERED: propofoL 500 MG/50 ML VIAL ONE (11:00)
[2024-06-10] MEDS ORDERED: LIDOCAINE 2% 100MG/5ML SDV (FOR ANES.) ONE (11:00)
[2024-06-10 12:30] VITALS: TEMP 97.2
[2024-06-10 12:57] VITALS: BP 133/67; O2SAT 99
== END 2024-06-10 13:07 | disposition home or self-care (01) ==
LOC: M OPP 10:59
PROVIDERS: ATTEND Internal Medicine Gastroenterology
DX: Z12.11 Encounter for screening for malignant neoplasm of colon (principal); Z80.0 Family history of malignant neoplasm of digestive organs; K64.0 First degree hemorrhoids; I48.91 Unspecified atrial fibrillation; I10 Essential (primary) hypertension; E03.9 Hypothyroidism, unspecified; Z85.850 Personal history of malignant neoplasm of thyroid; Z86.711 Personal history of pulmonary embolism; Z86.718 Personal history of other venous thrombosis and embolism; Z92.21 Personal history of antineoplastic chemotherapy; Z92.3 Personal history of irradiation; Z79.01 Long term (current) use of anticoagulants; Z79.890 Hormone replacement therapy; Z79.899 Other long term (current) drug therapy

== ENCOUNTER → 2024-12-06 | Outpatient (CLI) | payer BC | LOC: M WHC 12:42 | PROVIDERS: ATTEND Specialist | DX: N95.0 Postmenopausal bleeding (principal); N88.8 Other specified noninflammatory disorders of cervix uteri ==

== ENCOUNTER → 2024-12-31 | Outpatient (CLI) | payer BC ==
[2024-12-31 12:36] LABS: BASO # 0.0 10^3/uL (0.0-0.2); BASO % 0.3 % (0.0-1.0); EOS # 0.1 10^3/uL (0.0-0.5); EOS % 1.1 % (0.0-3.0); LYMPH # 2.0 10^3/uL (1.5-5.0); LYMPH % 27.2 % (24.0-44.0); MONO # 0.5 10^3/uL (0.0-0.8); MONO % 6.0 % (2.0-8.0); NEUTROPHILS # 4.9 10^3/uL (1.5-8.5); NEUTROPHILS % 65.0 % (36.0-66.0); PLATELET COUNT, AUTOMATED 268 10^3/uL (150-450)
[2024-12-31 12:40] LABS: ALT/SGPT 17.0 U/L (7.0-40); AST/SGOT 16.0 U/L (<34); CALCIUM LEVEL 9.5 MG/DL (8.5-10.1); CARBON DIOXIDE LEVEL 28.0 MMOL/L (20-31); CHLORIDE LEVEL 107.0 MMOL/L (98-107); CREATININE FOR GFR 0.82 MG/DL (0.55-1.30); GLOMERULAR FILTRATION RATE 82.9 (>51); POTASSIUM SERUM 4.2 MMOL/L (3.5-5.1); SODIUM LEVEL 145.0 MMOL/L (136-145)
[2025-01-03 17:17] LABS: FACTOR V111 ACTIVITY, CLOTTING 196 % normal (50-180); FACTOR VIII APTT 29 sec (23-32); RISTOCETIN COFACTOR 281 % normal (42-200); VW FACTOR ANTIGEN 221 % (50-217)
== END ==
LOC: M WUC 09:49
PROVIDERS: ATTEND Registered Nurse
DX: R79.1 Abnormal coagulation profile (principal); C92.41 Acute promyelocytic leukemia, in remission